=== PATIENT | female | born 1950 | race Caucasian/White ===

== ENCOUNTER 2018-03-08 09:42 | Inpatient (IN) ==
--- NOTE | 2018-03-07 21:28 | Discharge Summary ---
<Elizabeth Sena - Last Filed: 03/07/18 21:23> Orders not resulted at time of discharge: Pending orders 03/08/18 00:01 XR knee RT limited 1-2V [XR] Routine H/H [Hemoglobin and Hematocrit] [HEME] Routine Date of Encounter: 03/07/18 - Discharge Diagnosis (1) Status post total knee replacement, right Priority: Primary Status: Acute (2) Arthritis of knee, right Priority: Primary Status: Acute (3) History of WI (myocardial infarction) Priority: Secondary Status: Chronic (4) History of CHF (congestive heart failure) Priority: Secondary Status: Chronic (5) NICM (nonischemic cardiomyopathy) Priority: Secondary Status: Chronic (6) DMII (diabetes mellitus, type 2) Priority: Secondary Status: Chronic Qualifiers: Diabetes mellitus predatory animal exterminator insulin use: unspecified predatory animal exterminator insulin use status Diabetes mellitus complication status: with unspecified complications Qualified Code(s): E11.8 - Type 2 diabetes mellitus with unspecified complications (7) Hyperlipidemia Priority: Secondary Status: Chronic Qualifiers: Hyperlipidemia type: mixed hyperlipidemia Qualified Code(s): E78.2 - Mixed hyperlipidemia (8) Hypertension Priority: Secondary Status: Chronic Qualifiers: Hypertension type: essential hypertension Qualified Code(s): I10 - Essential (primary) hypertension - Hospital Course Hospital course: Ms. Birmingham is a 67 year old female - Time Spent with Patient Total time spent providing and/or coordinating discharge services: - Discharge Medications Home Medications: SUMAtriptan Succinate [Imitrex] 100 mg PO DAILY PRN 08/01/15 [History] Atorvastatin [Lipitor] 20 mg PO HS 03/24/16 [History] Ferrous Sulfate 65 mg PO QAM 03/24/16 [History] Levothyroxine [Synthroid] 25 mcg PO 0630 03/24/16 [History] Nitroglycerin [Nitrostat] 0.4 mg SL Q5MIN PRN 03/24/16 [History] metFORMIN [Glucophage] 500 mg PO BIDWM 03/24/16 [History] Loratadine [Claritin] 10 mg PO QAM PRN #0 08/03/17 [Rx] Aspirin Enteric Coated [Aspirin EC] 325 mg PO BID #20 tablet. 03/07/18 [Rx] OxyCODONE Immed Rel [Roxicodone 5 MG] 5 mg PO Q6HR PRN 7 Days #28 tablet [Rx] Amitriptyline [Elavil] 25 mg PO DAILY 03/08/18 [History] Aspirin 325 mg PO DAILY 03/08/18 [History] Carvedilol [Coreg] 25 mg PO BID 03/08/18 [History] Donepezil [Aricept] 10 mg PO HS 03/08/18 [History] Ferrous Sulfate [Iron] 325 mg PO DAILY 03/08/18 [History] Gabapentin [Neurontin] 400 mg PO BID 03/08/18 [History] Lisinopril 2.5 mg PO BID 03/08/18 [History] Metoprolol XL (24 HR) Succ [Toprol Xl] 25 mg PO DAILY 03/08/18 [History] Nystatin 1 applic TP BID PRN 03/08/18 [History] [place]-3/Dha/Epa/Fish Oil [Fish Oil Conc 1,000 mg Softgel] 1,000 mg PO DAILY [History] Pantoprazole Sodium 40 mg PO DAILY 03/08/18 [History] Tamoxifen Citrate 20 mg PO DAILY 03/08/18 [History] Tizanidine HCl 4 mg PO Q8H PRN 03/08/18 [History] Tramadol HCl [Ultram] 50 - 100 mg PO Q6H PRN 03/08/18 [History] Venlafaxine [Effexor] 75 mg PO BID 03/08/18 [History] Vitamin E 100 unit PO DAILY 03/08/18 [History] Zolpidem Tartrate 5 mg PO HS PRN 03/08/18 [History] amLODIPine [Norvasc] 7.5 mg PO DAILY 03/08/18 [History] rOPINIRole [Requip] 0.5 mg PO HS 03/08/18 [History] Lidocaine Patch [Lidoderm 5% patch] 1 each TP DAILY adh..patch 03/12/18 [Rx] Allergies/Adverse Reactions: 3 Allergy/AdvReac Type Severity Reaction Status Date / Time acetaminophen [From Tylenol] Allergy See Verified 03/08/18 10:53 Comments latex Allergy See Verified 03/08/18 10:53 Comments Primary care physician: Lesly Hopkins - Patient Status Disposition: Transfer SNF Condition: Good - Discharge Instructions Follow Up With: Lelsy Hopkins MD [Primary Care Provider] - <Heriberto Alexis - Last Filed: 03/08/18 10:33> Orders not resulted at time of discharge: Pending orders 03/08/18 00:01 XR knee RT limited 1-2V [XR] Routine H/H [Hemoglobin and Hematocrit] [HEME] Routine 03/08/18 09:55 US anesthesia pain block [US] Routine Date of Encounter: 03/08/18 - Discharge Diagnosis (1) Arthritis of knee, right Priority: Primary Status: Chronic (2) Status post total knee replacement, right Priority: Primary Status: Acute (3) DMII (diabetes mellitus, type 2) Priority: Secondary Status: Chronic Qualifiers: Diabetes mellitus predatory animal exterminator insulin use: unspecified usp insulin use status Diabetes mellitus complication status: with unspecified complications Qualified Code(s): E11.8 - Type 2 diabetes mellitus with unspecified complications (4) History of CHF (congestive heart failure) Priority: Secondary Status: Chronic (5) History of WI (myocardial infarction) Priority: Secondary Status: Chronic (6) Hyperlipidemia Priority: Secondary Status: Chronic Qualifiers: Hyperlipidemia type: mixed hyperlipidemia Qualified Code(s): E78.2 - Mixed hyperlipidemia (7) Hypertension Priority: Secondary Status: Chronic Qualifiers: Hypertension type: essential hypertension Qualified Code(s): I10 - Essential (primary) hypertension (8) NICM (nonischemic cardiomyopathy) Priority: Secondary Status: Chronic (9) Neuropathy Priority: Secondary Status: Chronic (12) Azotemia Priority: Secondary Status: Resolved (13) Leukocytosis Priority: Secondary Status: Resolved Qualifiers: Leukocytosis type: unspecified Qualified Code(s): D72.829 - Elevated white blood cell count, unspecified - Hospital Course Hospital course: Ms. Birmingham is a 67 year old female - Time Spent with Patient Total time spent providing and/or coordinating discharge services: Primary care physician: Lesly Hopkins <Sammie Hernandez - Last Filed: 03/12/18 13:28> Orders not resulted at time of discharge: Pending orders 03/08/18 09:55 US anesthesia pain block [US] Routine Date of Encounter: 03/12/18 Time of Encounter: 12:10 - Discharge Diagnosis (1) Acute blood loss anemia Status: Acute (2) Congestive heart failure (CHF) Status: Acute Qualifiers: Heart failure type: diastolic Heart failure chronicity: chronic Qualified Code(s): I50.32 - Chronic diastolic (congestive) heart failure (3) Status post total knee replacement, right Status: Acute (4) Arthritis of knee, right Status: Chronic (5) DMII (diabetes mellitus, type 2) Status: Chronic Qualifiers: Diabetes mellitus usp insulin use: unspecified usp insulin use status Diabetes mellitus complication status: with unspecified complications Qualified Code(s): E11.8 - Type 2 diabetes mellitus with unspecified complications (6) History of CHF (congestive heart failure) Status: Chronic (7) History of WI (myocardial infarction) Status: Chronic (8) Hyperlipidemia Status: Chronic Qualifiers: Hyperlipidemia type: mixed hyperlipidemia Qualified Code(s): E78.2 - Mixed hyperlipidemia (9) Hypertension Status: Chronic Qualifiers: Hypertension type: essential hypertension Qualified Code(s): I10 - Essential (primary) hypertension (10) NICM (nonischemic cardiomyopathy) Status: Chronic (11) Neuropathy Status: Chronic - Hospital Course Hospital course: Ms. Birmingham is a 67 year old female s/p Right Total knee replacement with history of CHF, HTN, DMT2, neuropathy, h/o WI. She did have acute blood loss anemia and received 2 units RBC transfusion. She had significant pain after surgery including calf pain. Doppler was performed to check for DVT but this was negative. She participated in some therapy. Stable for discharge. Patient seen at bedside, without complaints. A&O x 3 Afebrile, vital signs stable. Labs reviewed. H/H - 9.8/29.5 - received 2 units RBC transfusion yesterday Pain control: adequate. improved with lidoderm patch, will add for continuation at EC as needed. Doppler performed shows no evidence of DVT although it was an incomplete exam secondary to patient's low pain tolerance. I discussed with her again the importance of participating in therapy and walking further and she expressed understanding. All questions and concerns addressed. Educated on use of incentive spirometer. Encouraged ambulation and proper hydration. Patient educated on post-operative restrictions and post-operative care. Assessment and plan: Continue with postoperative care as above Discharge plan: [facility] today - Time Spent with Patient Total time spent providing and/or coordinating discharge services: Date of admission: 03/09/18 12:23 Primary care physician: Lesly Hopkins Consults: 03/08/18 14:05 Consult to Occupational Therapy [CONS] Routine Comment: Evaluate, develop and implement POC Reason for Consult: post knee surgery Does patient have active BEDREST order?: No Is patient medically & hemodynamically stable?: Yes Consult to Orthopedic Navigator [CONS] [CONS] Routine Consult to Physical Therapy [CONS] Routine Comment: Evaluate, develop and impliment POC Reason for Consult: post knee surgery Does patient have active BEDREST order?: No Is patient medically & hemodynamically stable?: Yes Consult to Charge Attendant [CONS] Routine Reason for SW Consult: post op joint replacement RT Post Op Consult [CONS] Routine Discharging clinician: Heriberto Alexis Anticipated date of discharge: 03/12/18 Labs on day of discharge: Labs from last 24 hours 03/12/18 03/11/18 03/11/18 05:15 19:03 16:48 Hgb 9.8 L D Hct 29.5 L POC Glucose 100 H 85 Blood Type Antibody Screen Crossmatch 03/11/18 03/11/18 03/11/18 11:52 08:00 07:35 Hgb Hct POC Glucose 116 H 98 Blood Type O NEGATIVE Antibody Screen NEGATIVE Crossmatch See Detail - Impressions ITS Impressions Knee X-Ray 03/08/18 00:01 IMPRESSION: Total knee arthropasty without acute hardware complication. D/ / Tyler Arroyo MD / Tyler Arroyo MD Interpreting Provider: Tyler Arroyo MD - Patient Status Overall status at discharge: patient is back to baseline - Diet and Activity Activity: as per physical therapy Diet: advance to your usual diet
[2018-03-08] MEDS ORDERED: Famotidine 20 MG/2 ML VIAL IVP ONE (09:54)
[2018-03-08] MEDS ORDERED: Acetaminophen IV 1,000 MG/100 ML INFUS..BTL IVPB ONE (09:55)
[2018-03-08] MEDS ORDERED: Celecoxib 100 MG CAPSULE PO ONE (09:55)
[2018-03-08] MEDS ORDERED: Ringers Solution, Lactated 1,000 ML IVC SCH (10:00)
[2018-03-08] MEDS ORDERED: *HR* Propofol 200 MG/20 ML VIAL IVP ONE (10:26)
[2018-03-08] MEDS ORDERED: *HR* FentaNYL (PF) 100 MCG/2 ML VIAL ONE (10:26)
[2018-03-08] MEDS ORDERED: *HR* Midazolam HCl 2 MG/2 ML VIAL ONE (10:26)
[2018-03-08] MEDS ORDERED: CeFAZolin Syr 2,000MG/20 ML 2,000 MG/20 ML SYRINGE IVPB ONE (10:29)
[2018-03-08] MEDS ORDERED: Albuterol 2.5 MG/3 ML NEBULIZER IH ONE (10:29)
[2018-03-08] MEDS ORDERED: Albuterol 2.5 MG/3 ML NEBULIZER ONE (10:32)
--- NOTE | 2018-03-08 10:33 | History & Physical Report ---
Date of Encounter: 03/08/18 Time of Encounter: 10:32 24 Hour HP Update - Instructions Instructions: If the History and Physical is less than 30 days old and was completed prior to A.M. admission and or procedure and has NOT been updated on calendar day of procedure please complete this update prior to performing procedure. - Update Patient reports changes in Medical Condition: No Changes in examination, assessment, or condition: No Changes in Medication: No Preop tests/diagnostics Reviewed: Yes Surgery Remains Indicated: Yes Consent for Planned Operative Procedure(s) Verified: Yes - Pre-Operative Checklist Preoperative Checklist Indicated: No Prophylactic Antibiotic Ordered: Yes Is VTE Prophylaxis Indicated?: Yes
[2018-03-08] MEDS ORDERED: *HR* PHENYLEPHRINE 1,000 MCG/10 ML SYRINGE IVP ONE (10:43)
--- NOTE | 2018-03-08 10:47 | Anesthesia Evaluation PreOp ---
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 History: CVA (2014) Other Medical History: Diabetes Type II, Thyroid, Other (LUIS) Anesthesia History: No Prior Anesthetic Complications : No Alcohol Use: none Drug use: none Medications and Allergies Gabapentin [Neurontin] 300 mg PO TID 02/20/15 [History] Tamoxifen [Nolvadex] 20 mg PO DAILY 02/20/15 [History] Venlafaxine [Effexor] 225 mg PO DAILY 02/20/15 [History] Zolpidem [Ambien] 10 mg PO HS 02/20/15 [History] Tizanidine [Zanaflex] 4 mg PO TID 06/03/15 [History] SUMAtriptan Succinate [Imitrex] 100 mg PO DAILY PRN 08/01/15 [History] Atorvastatin [Lipitor] 20 mg PO HS 03/24/16 [History] DiphenhydraMINE [Benadryl] 25 mg PO Q4HR 03/24/16 [History] Ferrous Sulfate 65 mg PO QAM 03/24/16 [History] Levothyroxine [Synthroid] 25 mcg PO 0630 03/24/16 [History] Lisinopril [Zestril] 10 mg PO DAILY 03/24/16 [History] Nitroglycerin [Nitrostat] 0.4 mg SL PRN PRN 03/24/16 [History] Prochlorperazine Maleate [Compazine] 10 mg PO Q6HR 03/24/16 [History] metFORMIN [Glucophage] 500 mg PO BIDWM 03/24/16 [History] Isosorbide MONOnitrate (24 HR) [Imdur] 60 mg PO DAILY #30 tab.er.24h 10/19/16 [ Rx] Docusate [Colace] 200 mg PO BID 02/09/17 [History] Coreg 1 tab PO BID 07/31/17 [History] Loratadine [Claritin] 10 mg PO QAM PRN #0 08/03/17 [Rx] Magnesium Oxide [Mag-Ox] 400 mg PO DAILY #7 tablet 08/03/17 [Rx] Aspirin Enteric Coated [Aspirin EC] 325 mg PO BID #20 tablet. 03/07/18 [Rx] OxyCODONE Immed Rel [Roxicodone 5 MG] 5 mg PO Q6HR PRN 7 Days #28 tablet [Rx] 3 Allergy/AdvReac Type Severity Reaction Status Date / Time acetaminophen [From Tylenol] Allergy See Verified 01/27/18 11:42 Comments latex Allergy See Verified 01/27/18 11:42 Comments - Meds/Allergy Pre-op Review Medications Reviewed: Yes Allergies Reviewed: Yes Beta Blockers on Current Med List: Yes (Coreg today 3014) Anesthesia Results - Labs Laboratory Tests 03/04/18 03/04/18 03/04/18 14:42 14:42 14:42 Hgb 11.5 Hct 35.1 L Plt Count 222 PT 12.1 INR 1.1 APTT 30.7 Sodium 141 Potassium 3.8 BUN 16 Creatinine 0.99 - Imaging EKG: report reviewed (Ectopic Atrial Rhythm) Additional studies: ECHO 2017 EF 60%, no pulm htn Anesthesia Exam O2 Sat Height 1.57 m Height 1.57 m Height 1.57 m Weight 71.214 kg Weight 71.214 kg Weight 71.214 kg O2 Sat by Pulse Oximetry 96 O2 Sat by Pulse Oximetry 96 Vital Signs Temp Pulse Resp BP Pulse Ox 99.0 F 65 18 138/71 96 03/08/18 10:05 03/08/18 10:05 03/08/18 10:05 03/08/18 10:05 03/08/18 10:05 Height: 5'2 Weight: 157 lbs NPO (# of Hours): MN Pain Scale: 0 - HEENT Pupil (Motor): Pupils equal, EOMI Mallampati: III Teeth: Normal Oral Opening: Less than or equal to 3 - 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
--- NOTE | 2018-03-08 10:48 | Anesthesia Procedures ---
Date of Encounter: 03/08/18 Time of Encounter: 10:45 Procedures: Anesthesia - Epidural/Spinal Patient ID/Chart reviewed: Yes Patient examined: Yes Consent Obtained: Yes Supplemental Oxygen: Nasal Cannula Site Prep: Aseptic Technique, 0.5% Chlorhexidine/Alcohol Patient position: upright Local Anesthetic: Lidocaine 1% Amount of Local Anesthetic used: 5 Interspace Used: L3-L4 Blood: No CSF: Yes Paresthesia: No Procedure: L3-4 x 1 attempt after failed previous attempt by another provider, clear CSF, no parasthesias, no heme. 2cc 0.5% bupivicaine plain with 0.2mg duramorph injected after positive swirl. Tolerated without complaint.
--- NOTE | 2018-03-08 10:59 | Anesthesia Procedures ---
Date of Encounter: 03/08/18 Time of Encounter: 10:57 Procedures: Anesthesia - Nerve Block Procedure Date: 03/08/18 Time: 10:57 Allergies/Adv Reactions: acetaminophen [From Tylenol] Allergy (Verified 03/08/18 10:53) See Comments latex Allergy (Verified 03/08/18 10:53) See Comments Pre-op Diagnosis: right knee oa Surgical Procedure: right total knee Checklist: Correct Patient Identifier, Correct procedure, History checked Correct side: Right Blood Thinner: No Sedation: Versed (mg): 4 Sedation: Fentanyl (mcg): 100 Indication: Post Op Analgesia Pre-op Neuro Deficits: No Block Type: Other (Adductor canal)
[2018-03-08] MEDS ORDERED: ROPIVACAINE HCL/PF 0.5% 30 ML VIAL ONE (11:08)
[2018-03-08] MEDS ORDERED: *HR* Morphine Sulfate/PF 10 MG/10 ML AMPUL ONE (11:12)
[2018-03-08] MEDS ORDERED: Ethanol\\Acetic Acid\\Na Ace\\Ben 1,000 ML IRRIG.SOLN IR ONE (11:14)
[2018-03-08] MEDS ORDERED: Tetracaine/PF 20 MG/2 ML AMPUL ONE (11:39)
[2018-03-08] MEDS ORDERED: Propofol 500 MG/50 ML INFUS..BTL ONE (11:43)
--- NOTE | 2018-03-08 11:49 | Anesthesia Procedures ---
Date of Encounter: 03/08/18 Time of Encounter: 11:35 Procedures: Anesthesia - Epidural/Spinal Patient ID/Chart reviewed: Yes Patient examined: Yes Supplemental Oxygen Rate (L/min): 2 Sedation: Versed (mg): 2 Sedation: Fentanyl (mcg): 100 Site Prep: Aseptic Technique, Sterile prep and drape, 0.5% Chlorhexidine/Alcohol Patient position: upright Local Anesthetic: Lidocaine 1% Amount of Local Anesthetic used: 2 Interspace Used: L2-L3 Blood: No CSF: Yes Paresthesia: No Spinal Needle Gauge: 22 Spinal Dose: 2ml 0.5% bupivacaine, 200mcg duramorph Procedure: Vital Signs/O2 Sat/Glucose, Most Recent Temp Pulse Resp BP Pulse Ox 99.0 F 67 16 128/60 93 03/08/18 10:05 03/08/18 11:39 03/08/18 11:39 03/08/18 11:39 03/08/18 11:39 Blood Glucose* 102 - Nerve Block Procedure Date: 03/08/18 Time: 11:40 Pre-op Diagnosis: right knee oa Surgical Procedure: right tka Checklist: Correct Patient Identifier, Correct procedure, History checked Correct side: Right Blood Thinner: No Monitor Applied: EKG, BP, Pulse Oximetry Supplemental Oxygen via Nasal Cannula (L/min): 2 Indication: Post Op Analgesia Pre-op Neuro Deficits: No Block Type: Other (adductor canal) Sterile Technique: Yes Ultrasound used: Yes Anatomy identified: Yes Visual spread of Local: Yes Neuro Stimulation: No Blood on Needle Aspiration: No Smooth Injection of Local: Yes Pain with Injection of Local: No Prep: Chlorhexadine Needle: 21 x 100 mm Stimuplex Local: Tetracaine (20mg), Ropivacaine Volume (cc): 30 Number of Attempts: 1 Complications: None/effective block Vitals: Vital Signs/O2 Sat/Glucose, Most Recent Temp Pulse Resp BP Pulse Ox 99.0 F 67 16 128/60 93 03/08/18 10:05 03/08/18 11:39 03/08/18 11:39 03/08/18 11:39 03/08/18 11:39 Blood Glucose* 102
[2018-03-08] MEDS ORDERED: *HR* Promethazine 25 MG/ML VIAL IVP PRN (12:31)
[2018-03-08] MEDS ORDERED: *HR* HYDROmorphone (PF) 1 MG/ML SYRINGE IVP PRN (12:31)
[2018-03-08] MEDS ORDERED: *HR* Labetalol 20 MG/4 ML SYRINGE IVP PRN (12:31)
[2018-03-08] MEDS ORDERED: *HR* OxyCODONE Immed Rel 5 MG TABLET PO PRN (12:31)
--- NOTE | 2018-03-08 12:36 | Orthopedic Operative Note ---
Date of procedure: 03/08/18 Pre-op diagnosis: Right knee arthritis Post-op diagnosis: same Procedure: Procedure: Right Total knee replacement Estimated blood loss: 100 cc Hardware: Metal and polyethylene replacement. Arthrex Femur: 3 Tibia:3 PS insert: 14 Patella:34 Exam Under anesthesia: Full flexion and extension, no instability Procedural Notes: Grade 4 arthritic changes all 3 compartments. Operative procedure: The patient was brought to the operating room and placed on the operating room table. After general anesthesia was administered the operative knee was examined. Findings were noted in the exam under anesthesia. The operative extremity was prepped and draped in sterile surgical fashion. The patient received IV antibiotics prior to skin incision. A standard midline incision was made centered over the patella. The incision was made through the skin and subcutaneous tissue. A medial parapatellar tendon approach was performed. Care was taken to preserve tissue along the medial aspect of the patella. And to protect the patella tendon. The deep MCL was released off the medial tibia. The infra patella fat pad was excised. Knee was brought into flexion. Patient noted to have grade 4 arthritic changes all 3 compartments. The entry hole was made for the intramedullary femoral guide. The guide was seated in 6 degrees of valgus. Anterior cut was made followed by the distal cut. The ACL the PCL the medial and the lateral menisci were excised. The tibia was subluxed forward. The entry hole was made for the intramedullary tibial guide. Guide was seated to resect 2 mm off the more abnormal side. The knee was brought into flexion the distal femur was sized to a 3. The femoral guide was seated, the anterior cut was made followed by the posterior condylar cut, followed by the chamfer cuts. The finishing guide was seated the box cut was made and the lug holes were drilled. The tibia was sized to a 3, the tibial tray was seated and prepared with the large drill followed by the fin cutter. Trial reduction revealed full extension no varus valgus instability with the appropriate 14 PS Anne. The patella was everted and cut was made at the level of the insertion of the quadriceps and patella tendon. The patella was sized to a 34 the guide was seated and the lug holes are drilled. Trial reduction revealed excellent patella tracking. All trial components were removed all bony surfaces were irrigated. The tibia was cemented first followed by the femur. The 14 PS Anne was seated and the knee was brought into full extension. The patella was cemented and held in place with the patellar holding clamp. After the cement had hardened, the knee sat for 2 minutes with a antibacterial solution. The knee was then irrigated out with 2 L of pulse irrigation. The PA close the knee. The extensor mechanism was closed with #2 FiberWire suture and #2 PDS suture. The subcutaneous tissue was then irrigated and closed deep with #1 PDS suture superficially with 0 PDS suture and skin was closed with skin danica. The patient was then placed in a sterile dressing and a postoperative brace extubated and transferred to recovery room in stable condition. Anesthesia: spinal Surgeon: Heriberto Alexis Was there an bankruptcy assistant present: No Estimated blood loss (cc): 100 Condition: stable Disposition: PACU
[2018-03-08 13:36] LABS: Hematocrit 34.1 % (35.3-44.9); Hemoglobin 11.2 g/dL (11.5-15.4)
--- NOTE | 2018-03-08 13:44 | Anesthesia Evaluation Post Op ---
Date of Encounter: 03/08/18 Time of Encounter: 13:42 - Vital Signs Vital Signs: Last Vital Signs Temp 97.6 F 03/08/18 13:30 Pulse 55 03/08/18 13:30 Resp 16 03/08/18 13:30 BP 127/71 03/08/18 13:30 Pulse Ox 93 03/08/18 13:30 - Lungs Lungs: Clear Ascult./Percussion - Airway Airway: Non-obstructed - Cardiovascular Regular Rate - Mental Status Mental Status: Alert & Oriented, Answers Appropriately - Pain Pain Scale: 0 Pain Scale used: Numeric (1 - 10) - Nausea Vomiting Nausea Vomiting: Not Present - Hydration Hydration: Ice chips, Chun catheter - Discharge PostOp Status: Transfer Patient to floor
[2018-03-08] MEDS ORDERED: Nitroglycerin 0.4 MG TAB.SUBL SL PRN (14:05)
[2018-03-08] MEDS ORDERED: Loratadine 10 MG TABLET PO PRN (14:05)
[2018-03-08] MEDS ORDERED: Nystatin POWDER 30 GM BOTTLE TP PRN (14:05)
[2018-03-08] MEDS ORDERED: *HR* OxyCODONE/APAP 5/325 TABLET PO PRN (14:05)
[2018-03-08] MEDS ORDERED: *HR* Dextrose 50 % in Water (Syg) 50 ML SYRINGE IVP PRN (14:05)
[2018-03-08] MEDS ORDERED: Temazepam 15 MG CAPSULE PO PRN (14:05)
[2018-03-08] MEDS ORDERED: Naloxone 0.4 MG/ML INJ IVP PRN (14:05)
[2018-03-08] MEDS ORDERED: SUMAtriptan succinate 50 MG TABLET PO PRN (14:05)
[2018-03-08] MEDS ORDERED: Sennosides 8.6 MG TABLET PO PRN (14:05)
[2018-03-08] MEDS ORDERED: Dextrose Gel 15 GM/37.5 ML TUBE PO PRN ×2 (14:05)
[2018-03-08] MEDS ORDERED: MOM Conc 10 ML UD.LIQ PO PRN (14:05)
[2018-03-08] MEDS ORDERED: D5% in Water 1,000 ML IVC PRN (14:05)
[2018-03-08] MEDS ORDERED: Ondansetron 4 MG/2 ML VIAL IVP PRN (14:05)
[2018-03-08] MEDS ORDERED: tiZANidine 4 MG TABLET PO PRN (14:05)
--- NOTE | 2018-03-08 15:33 | Physician Discharge Referral ---
<Elizabeth Sena L - Last Filed: 03/08/18 15:32> [facility] Referral Info Transfer To: F Provider in Charge: Provider in Charge after Transfer: PCP Institutional Level of Care: Skilled - Diagnosis (1) Status post total knee replacement, right Priority: Primary Status: Acute (2) Arthritis of knee, right Priority: Primary Status: Chronic (3) History of [place] (myocardial infarction) Priority: Secondary Status: Chronic (4) History of CHF (congestive heart failure) Priority: Secondary Status: Chronic (5) NICM (nonischemic cardiomyopathy) Priority: Secondary Status: Chronic (6) DMII (diabetes mellitus, type 2) Priority: Secondary Status: Chronic (7) Hyperlipidemia Priority: Secondary Status: Chronic (8) Hypertension Priority: Secondary Status: Chronic Expected Duration of Placement: < 30 days Prognosis: Good Aware of Diagnosis: Patient Aware of Prognosis: Patient - Transfer Medications Home Medications: SUMAtriptan Succinate [Imitrex] 100 mg PO DAILY PRN 08/01/15 [History] Atorvastatin [Lipitor] 20 mg PO HS 03/24/16 [History] Ferrous Sulfate 65 mg PO QAM 03/24/16 [History] Levothyroxine [Synthroid] 25 mcg PO 0630 03/24/16 [History] Nitroglycerin [Nitrostat] 0.4 mg SL Q5MIN PRN 03/24/16 [History] metFORMIN [Glucophage] 500 mg PO BIDWM 03/24/16 [History] Loratadine [Claritin] 10 mg PO QAM PRN #0 08/03/17 [Rx] Aspirin Enteric Coated [Aspirin EC] 325 mg PO BID #20 tablet. 03/07/18 [Rx] OxyCODONE Immed Rel [Roxicodone 5 MG] 5 mg PO Q6HR PRN 7 Days #28 tablet [Rx] Amitriptyline [Elavil] 25 mg PO DAILY 03/08/18 [History] Aspirin 325 mg PO DAILY 03/08/18 [History] Carvedilol [Coreg] 25 mg PO BID 03/08/18 [History] Donepezil [Aricept] 10 mg PO HS 03/08/18 [History] Ferrous Sulfate [Iron] 325 mg PO DAILY 03/08/18 [History] Gabapentin [Neurontin] 400 mg PO BID 03/08/18 [History] Lisinopril [Lisinopril] 2.5 mg PO BID 03/08/18 [History] Metoprolol XL (24 HR) Succ [Toprol Xl] 25 mg PO DAILY 03/08/18 [History] Nystatin [Nystatin] 1 applic TP BID PRN 03/08/18 [History] [place]-3/Dha/Epa/Fish Oil [Fish Oil Conc 1,000 mg Softgel] 1,000 mg PO DAILY [History] Pantoprazole Sodium 40 mg PO DAILY 03/08/18 [History] Tamoxifen Citrate [Tamoxifen Citrate] 20 mg PO DAILY 03/08/18 [History] Tizanidine HCl [Tizanidine HCl] 4 mg PO Q8H PRN 03/08/18 [History] Tramadol HCl [Ultram] 50 - 100 mg PO Q6H PRN 03/08/18 [History] Venlafaxine [Effexor] 75 mg PO BID 03/08/18 [History] Vitamin E 100 unit PO DAILY 03/08/18 [History] Zolpidem Tartrate [Zolpidem Tartrate] 5 mg PO HS PRN 03/08/18 [History] amLODIPine [Norvasc] 7.5 mg PO DAILY 03/08/18 [History] rOPINIRole [Requip] 0.5 mg PO HS 03/08/18 [History] Allergies/Adverse Reactions: 3 Allergy/AdvReac Type Severity Reaction Status Date / Time acetaminophen [From Tylenol] Allergy See Verified 03/08/18 10:53 Comments latex Allergy See Verified 03/08/18 10:53 Comments - Respiratory Orders None Smoking Cessation: Smoking cessation has been advised. For more information, call the [place] Tobacco Quit Line at 7-739-SZYT-NOW. - Mobility Orders Chair, Ambulate - Rehabiliation Orders Rehab Potential: Good Rehab Orders: ROM Exercises, Evaluation for Physical Therapy, Evaluation for Occupational Therapy Other: Opsite dressing, leave intact until first post-operative visit. If dressing becomes >50% saturated, contact office, remove dressing and place appropriate dressing in its place. Do not allow for dressing to get wet. Zipline in place, plan to remove at post-operative day #14-16. Total Joint Precautions x 6 weeks Apply cold therapy wrap 3-6x/day for 20 minutes at a time. Encourage ambulation throughout the day Use Incentive spirometer 10x/hour. Elevate affected extremity above heart as tolerated. Brace: Wear knee immobilizer at night until first post-operative appt. - Treatments Skin tear care topically daily PRN per policy, Fleet enema rectally every other day PRN cleansing purposes - Diet Orders Regular CERTIFICATION: I certify that the transfer of the above named patient to an Extended Care Facility is necessary for the continuing treatment of the diagnosis listed. The above information is true and accurate reflection of patient's current condition. Confidential - Redisclosure prohibited without a patient's written consent. <Heriberto Alexis - Last Filed: 03/11/18 08:34> - Diagnosis (1) Arthritis of knee, right Status: Chronic (2) Status post total knee replacement, right Status: Acute (3) DMII (diabetes mellitus, type 2) Status: Chronic (4) History of CHF (congestive heart failure) Status: Chronic (5) History of [place] (myocardial infarction) Status: Chronic (6) Hyperlipidemia Status: Chronic (7) Hypertension Status: Chronic (8) NICM (nonischemic cardiomyopathy) Status: Chronic (9) Neuropathy Status: Chronic (10) Acute blood loss anemia Status: Acute (11) Congestive heart failure (CHF) Status: Acute - Respiratory Orders Smoking Cessation: Smoking cessation has been advised. For more information, call the [place] Tobacco Quit Line at 9-300-IDVX-NOW. CERTIFICATION: I certify that the transfer of the above named patient to an Extended Care Facility is necessary for the continuing treatment of the diagnosis listed. The above information is true and accurate reflection of patient's current condition. Confidential - Redisclosure prohibited without a patient's written consent.
[2018-03-08] MEDS: Insulin LISPRO 300 UNITS/3 ML VIAL SQ SCH ×3 (16:22→21:25)
[2018-03-08] MEDS: Ringers Solution, Lactated 1,000 ML IVC SCH (16:22)
[2018-03-08] MEDS: *HR* OxyCODONE Immed Rel 5 MG TABLET PO PRN ×2 (16:33→21:24)
[2018-03-08] MEDS: *HR* Enoxaparin 30 MG/0.3 ML SYRINGE SQ SCH (18:10)
[2018-03-08] MEDS: *HR* Metformin 500 MG TABLET PO SCH (18:10)
[2018-03-08] MEDS: Gabapentin 400 MG CAPSULE PO SCH (21:24)
[2018-03-08] MEDS: rOPINIRole 0.25 MG TABLET PO SCH (21:24)
[2018-03-09] MEDS: *HR* OxyCODONE Immed Rel 5 MG TABLET PO PRN ×4 (01:22→17:05)
[2018-03-09 02:40] LABS: Hematocrit 27.7 % (35.3-44.9)
[2018-03-09 02:41] LABS: Hemoglobin 9.1 g/dL (11.5-15.4)
[2018-03-09 02:58] LABS: BUN/Creatinine Ratio 15 (6-26); Blood Urea Nitrogen 14 mg/dL (8-23); Calcium 7.4 mg/dL (8.6-10.3); Carbon Dioxide 23 mEq/L (23-29); Chloride 105 mEq/L (98-107); Glucose 128 mg/dL (70-105); Osmolality,Calculated 280 (280-300); Potassium 4.3 mEq/L (3.5-5.1); Sodium 134 mEq/L (136-145); eGFR For Non-African Americans > 60 (> 60)
[2018-03-09] MEDS: *HR* Enoxaparin 30 MG/0.3 ML SYRINGE SQ SCH ×2 (05:16→17:05)
[2018-03-09] MEDS: Levothyroxine 25 MCG TABLET PO SCH (05:17)
--- NOTE | 2018-03-09 06:56 | Orthopedics Progress Note ---
Date of Encounter: 03/09/18 Time of Encounter: 06:54 - Assessment and Plan (1) Arthritis of knee, right Current Visit: No Status: Chronic (2) Status post total knee replacement, right Current Visit: No Status: Acute (3) DMII (diabetes mellitus, type 2) Current Visit: No Status: Chronic Qualifiers: Diabetes mellitus manager long term care insulin use: unspecified manager long term care insulin use status Diabetes mellitus complication status: with unspecified complications Qualified Code(s): E11.8 - Type 2 diabetes mellitus with unspecified complications (4) History of CHF (congestive heart failure) Current Visit: No Status: Chronic (5) History of [place] (myocardial infarction) Current Visit: No Status: Chronic (6) Hyperlipidemia Current Visit: No Status: Chronic Qualifiers: Hyperlipidemia type: mixed hyperlipidemia Qualified Code(s): E78.2 - Mixed hyperlipidemia (7) Hypertension Current Visit: No Status: Chronic Qualifiers: Hypertension type: essential hypertension Qualified Code(s): I10 - Essential (primary) hypertension (8) NICM (nonischemic cardiomyopathy) Current Visit: No Status: Chronic (9) Neuropathy Current Visit: No Status: Chronic (10) Acute blood loss anemia Current Visit: Yes Status: Acute Subjective Interval history: Patient was seen this morning doing well without complaints. Afebrile vital signs stable. Operative extremity: Neurovascularly intact Dressing clean dry and intact Calves nontender Assessment and plan: Continue with postoperative care Hemoglobin 9.1 patient is unsafe to go home patient has active diabetes, active congestive heart failure will require significant observation postoperatively will be converted to an inpatient. Objective Vital signs: Vital Signs Temp Pulse Resp BP Pulse Ox 03/09/18 04:36 98.8 F 03/09/18 03:36 99.9 F H 67 18 107/69 95 03/08/18 23:25 99.0 F 73 18 118/74 96 03/08/18 19:18 98.2 F 61 16 143/84 03/08/18 17:45 98.6 F 60 16 137/79 90 03/08/18 16:45 98 F 60 18 109/68 90 03/08/18 15:45 97.5 F L 89 15 118/69 92 03/08/18 15:15 97.7 F 60 16 114/65 90 03/08/18 14:45 97.7 F 60 16 122/56 92 03/08/18 14:30 98.3 F 54 16 113/73 93 03/08/18 14:15 97.8 F 55 16 120/77 92 03/08/18 13:50 97.9 F 54 16 132/67 93 03/08/18 13:40 97.9 F 53 16 122/71 92 03/08/18 13:30 97.6 F 55 16 127/71 93 03/08/18 13:20 54 16 118/65 96 03/08/18 13:10 53 16 123/61 93 03/08/18 13:00 97.2 F L 60 16 98/61 97 03/08/18 11:39 67 16 128/60 93 03/08/18 11:06 65 16 151/80 99 03/08/18 10:52 18 138/71 96 03/08/18 10:05 99.0 F 65 18 138/71 96 Intake and Output 03/08/18 03/08/18 03/09/18 15:59 23:59 07:59 Intake Total 300 / 300 Output Total 100 / 100 Balance -100 / -100 300 / 300 Intake: IV Fluids 100 / 100 Ancef 2,000 MG In 0.9 % Sodium 100 / 100 Chloride 100 ML @ 200 mls/hr IVPB Q8HR [facility] Rx#:[id number] Oral 200 / 200 Output: Estimated Blood Loss 100 / 100 Other: Meal Dinner Percent of Meal Consumed 70% # Voids 1 1 Weight 71.214 kg Blood Glucose* 75 130 - Labs CBC & BMP: 03/09/18 01:43 03/09/18 01:43 Labs: Abnormal lab results Hgb 9.1 g/dL (11.5-15.4) L D 03/09/18 01:43 Hct 27.7 % (35.3-44.9) L 03/09/18 01:43 Sodium 134 mEq/L (136-145) L 03/09/18 01:43 Glucose 128 mg/dL (70-105) H 03/09/18 01:43 POC Glucose 130 mg/dL (70-99) H 03/08/18 21:20 Calcium 7.4 mg/dL (8.6-10.3) L 03/09/18 01:43 - VTE Documentation of Mechanical Device: Venous foot pump, device Consult Discharge Plan - Plan Referrals: Lesly Hopkins MD [Primary Care Provider] - Prescriptions: Aspirin Enteric Coated [Aspirin EC] 325 mg PO BID #20 tablet. OxyCODONJw Immed Rel [Roxicodone 5 MG] 5 mg PO Q6HR PRN 7 Days #28 tablet PRN Reason: Severe Pain
[2018-03-09] MEDS: Insulin LISPRO 300 UNITS/3 ML VIAL SQ SCH ×4 (08:11→20:52)
[2018-03-09] MEDS: amLODIPine 5 MG TABLET PO SCH (08:16)
[2018-03-09] MEDS: Metoprolol XL (24 HR) Succ 25 MG TAB.ER.24H PO SCH (08:17)
[2018-03-09] MEDS: traMADol 50 MG TABLET PO PRN (08:17)
[2018-03-09] MEDS: Aspirin 325 MG TABLET PO SCH (08:17)
[2018-03-09] MEDS: Gabapentin 400 MG CAPSULE PO SCH ×2 (08:18→20:48)
[2018-03-09] MEDS: *HR* Metformin 500 MG TABLET PO SCH ×2 (08:18→17:05)
[2018-03-09] MEDS: Ringers Solution, Lactated 1,000 ML IVC SCH (08:21)
[2018-03-09] MEDS: EPA PO SCH (08:30)
[2018-03-09] MEDS: OMEGA PO SCH (08:30)
[2018-03-09] MEDS: FISH OIL PO SCH (08:30)
[2018-03-09] MEDS: DHA PO SCH (08:30)
--- NOTE | 2018-03-09 20:07 | Event Note ---
Date of Encounter: 03/09/18 Time of Encounter: 12:45 PCR - POD#1 s/p Right Total knee replacement 03/08/18 Patient seen at bedside, without complaints. A&O x 3 Afebrile, vital signs stable. Labs reviewed. H/H - 9.07/18.7 stable, asymptomatic Pain control: inadequate, she has allergy to tylenol. will add lidoderm patch for local pain relief. She does have calf tenderness to palpation stating shooting up to knee and thigh worse with motion. Will order doppler now for possible DVT. Participated in 1 session with OT this morning, she refused other 3 attempts for therapy today by PT/OT due to pain. I discussed with her the importance of participating in therapy and she expressed understanding. All questions and concerns addressed. Educated on use of incentive spirometer. Encouraged ambulation and proper hydration. Patient educated on post-operative restrictions and post-operative care. Assessment and plan: Continue with postoperative care as above Discharge plan: ERICA Brooks
[2018-03-09] MEDS: rOPINIRole 0.25 MG TABLET PO SCH (20:49)
[2018-03-10] MEDS: *HR* OxyCODONE Immed Rel 5 MG TABLET PO PRN ×5 (01:11→22:22)
[2018-03-10 01:43] LABS: Hematocrit 26.6 % (35.3-44.9); Hemoglobin 8.9 g/dL (11.5-15.4)
[2018-03-10 02:09] LABS: BUN/Creatinine Ratio 15 (6-26); Blood Urea Nitrogen 11 mg/dL (8-23); Calcium 8.1 mg/dL (8.6-10.3); Carbon Dioxide 24 mEq/L (23-29); Chloride 101 mEq/L (98-107); Glucose 125 mg/dL (70-105); Osmolality,Calculated 275 (280-300); Potassium 3.7 mEq/L (3.5-5.1); Sodium 132 mEq/L (136-145); eGFR For Non-African Americans > 60 (> 60)
[2018-03-10] MEDS: *HR* Enoxaparin 30 MG/0.3 ML SYRINGE SQ SCH ×2 (05:42→17:58)
[2018-03-10] MEDS: Levothyroxine 25 MCG TABLET PO SCH (05:42)
--- NOTE | 2018-03-10 08:11 | Orthopedics Progress Note ---
Date of Encounter: 03/10/18 Time of Encounter: 08:10 - Assessment and Plan (1) Arthritis of knee, right Current Visit: No Status: Chronic (2) Status post total knee replacement, right Current Visit: No Status: Acute (3) DMII (diabetes mellitus, type 2) Current Visit: No Status: Chronic Qualifiers: Diabetes mellitus manager long term care insulin use: unspecified manager long term care insulin use status Diabetes mellitus complication status: with unspecified complications Qualified Code(s): E11.8 - Type 2 diabetes mellitus with unspecified complications (4) History of CHF (congestive heart failure) Current Visit: No Status: Chronic (5) History of [place] (myocardial infarction) Current Visit: No Status: Chronic (6) Hyperlipidemia Current Visit: No Status: Chronic Qualifiers: Hyperlipidemia type: mixed hyperlipidemia Qualified Code(s): E78.2 - Mixed hyperlipidemia (7) Hypertension Current Visit: No Status: Chronic Qualifiers: Hypertension type: essential hypertension Qualified Code(s): I10 - Essential (primary) hypertension (8) NICM (nonischemic cardiomyopathy) Current Visit: No Status: Chronic (9) Neuropathy Current Visit: No Status: Chronic (10) Acute blood loss anemia Current Visit: Yes Status: Acute (11) Congestive heart failure (CHF) Current Visit: Yes Status: Acute Qualifiers: Heart failure type: diastolic Heart failure chronicity: chronic Qualified Code(s): I50.32 - Chronic diastolic (congestive) heart failure Subjective Interval history: Patient was seen this morning doing well without complaints. Afebrile vital signs stable. Operative extremity: Neurovascularly intact Dressing clean dry and intact Calves nontender Assessment and plan: Continue with postoperative care Hemoglobin 8.9 Objective Vital signs: Vital Signs Temp Pulse Resp BP Pulse Ox 03/10/18 06:44 98.8 F 87 16 118/76 93 03/10/18 04:02 99.1 F 81 16 112/72 90 03/10/18 00:46 99.1 F 79 17 142/77 94 03/09/18 20:42 99.9 F H 84 17 143/79 95 03/09/18 15:28 99.9 F H 77 17 169/77 93 03/09/18 11:21 99.5 F 73 17 151/76 94 Intake and Output 03/09/18 03/10/18 03/10/18 23:59 07:59 15:59 Intake Total 50 / 50 Output Total 350 / 350 Balance 50 / 50 -350 / -350 Intake: Oral 50 / 50 Output: Urine 350 / 350 Other: Weight 73.5 kg Blood Glucose* 133 114 Patient Weight 03/10/18 23:59 Weight 73.5 kg - Labs CBC & BMP: 03/10/18 00:44 03/10/18 00:44 Labs: Abnormal lab results Hgb 8.9 g/dL (11.5-15.4) L 03/10/18 00:44 Hct 26.6 % (35.3-44.9) L 03/10/18 00:44 Sodium 132 mEq/L (136-145) L 03/10/18 00:44 Glucose 125 mg/dL (70-105) H 03/10/18 00:44 POC Glucose 133 mg/dL (70-99) H 03/09/18 20:52 Calculated Osmolality 275 (280-300) L 03/10/18 00:44 Calcium 8.1 mg/dL (8.6-10.3) L 03/10/18 00:44 - VTE Documentation of Mechanical Device: Venous foot pump, device Consult Discharge Plan - Plan Referrals: Lesly Hopkins MD [Primary Care Provider] -
[2018-03-10] MEDS: Metoprolol XL (24 HR) Succ 25 MG TAB.ER.24H PO SCH (09:08)
[2018-03-10] MEDS: amLODIPine 5 MG TABLET PO SCH (09:09)
[2018-03-10] MEDS: Aspirin 325 MG TABLET PO SCH (09:10)
[2018-03-10] MEDS: EPA PO SCH (09:10)
[2018-03-10] MEDS: FISH OIL PO SCH (09:10)
[2018-03-10] MEDS: *HR* Metformin 500 MG TABLET PO SCH ×2 (09:10→16:43)
[2018-03-10] MEDS: Gabapentin 400 MG CAPSULE PO SCH ×2 (09:10→22:22)
[2018-03-10] MEDS: DHA PO SCH (09:10)
[2018-03-10] MEDS: OMEGA PO SCH (09:10)
[2018-03-10] MEDS: traMADol 50 MG TABLET PO PRN ×2 (09:14→17:58)
[2018-03-10] MEDS: Insulin LISPRO 300 UNITS/3 ML VIAL SQ SCH ×4 (09:20→22:23)
--- NOTE | 2018-03-10 17:45 | Event Note ---
Date of Encounter: 03/10/18 Time of Encounter: 12:45 PCR - POD#2 s/p Right Total knee replacement 03/08/18 Patient seen at bedside, without complaints. A&O x 3 Afebrile, vital signs stable. Labs reviewed. H/H - 8.9/26.6 stable, asymptomatic Pain control: improved with lidoderm patch Doppler performed shows no evidence of DVT although it was an incomplete exam secondary to patient's low pain tolerance. She admits to not walking with therapy [place] [facility] [place] further. I discussed with her again the importance of participating in therapy and walking further and she expressed understanding. All questions and concerns addressed. Educated on use of incentive spirometer. Encouraged ambulation and proper hydration. Patient educated on post-operative restrictions and post-operative care. Assessment and plan: Continue with postoperative care as above Discharge plan: ERICA Brooks on 03/12
[2018-03-10] MEDS: rOPINIRole 0.25 MG TABLET PO SCH (22:22)
[2018-03-11] MEDS: traMADol 50 MG TABLET PO PRN (03:45)
[2018-03-11 05:04] LABS: Hematocrit 23.4 % (35.3-44.9); Hemoglobin 7.6 g/dL (11.5-15.4)
[2018-03-11] MEDS: *HR* OxyCODONE Immed Rel 5 MG TABLET PO PRN ×3 (05:41→23:14)
[2018-03-11] MEDS: Levothyroxine 25 MCG TABLET PO SCH (05:41)
[2018-03-11] MEDS ORDERED: Furosemide 20 MG/2 ML VIAL IVP ONE (07:37)
[2018-03-11] MEDS: *HR* Enoxaparin 30 MG/0.3 ML SYRINGE SQ SCH ×2 (07:51→20:07)
--- NOTE | 2018-03-11 08:35 | Orthopedics Progress Note ---
Date of Encounter: 03/11/18 Time of Encounter: 08:35 - Assessment and Plan (1) Arthritis of knee, right Current Visit: No Status: Chronic (2) Status post total knee replacement, right Current Visit: No Status: Acute (3) DMII (diabetes mellitus, type 2) Current Visit: No Status: Chronic Qualifiers: Diabetes mellitus termite exterminator insulin use: unspecified termite exterminator insulin use status Diabetes mellitus complication status: with unspecified complications Qualified Code(s): E11.8 - Type 2 diabetes mellitus with unspecified complications (4) History of CHF (congestive heart failure) Current Visit: No Status: Chronic (5) History of [place] (myocardial infarction) Current Visit: No Status: Chronic (6) Hyperlipidemia Current Visit: No Status: Chronic Qualifiers: Hyperlipidemia type: mixed hyperlipidemia Qualified Code(s): E78.2 - Mixed hyperlipidemia (7) Hypertension Current Visit: No Status: Chronic Qualifiers: Hypertension type: essential hypertension Qualified Code(s): I10 - Essential (primary) hypertension (8) NICM (nonischemic cardiomyopathy) Current Visit: No Status: Chronic (9) Neuropathy Current Visit: No Status: Chronic (10) Acute blood loss anemia Current Visit: Yes Status: Acute (11) Congestive heart failure (CHF) Current Visit: Yes Status: Acute Qualifiers: Heart failure type: diastolic Heart failure chronicity: chronic Qualified Code(s): I50.32 - Chronic diastolic (congestive) heart failure Subjective Interval history: Patient was seen this morning doing well without complaints. Afebrile vital signs stable. Operative extremity: Neurovascularly intact Dressing clean dry and intact Calves nontender Assessment and plan: Continue with postoperative care Hemoglobin 7.2 transfuse 2 units discharged today Objective Vital signs: Vital Signs Temp Pulse Resp BP Pulse Ox 03/11/18 07:00 98 F 67 16 109/63 93 03/11/18 04:17 98.1 F 71 16 109/70 91 03/10/18 23:46 98.1 F 76 16 108/70 92 03/10/18 22:26 84 118/76 03/10/18 20:59 98.1 F 93 17 109/69 92 03/10/18 16:56 98.3 F 73 16 102/65 94 03/10/18 15:15 98.5 F 88 16 117/62 93 03/10/18 10:00 98.4 F 93 16 123/74 95 Intake and Output 03/10/18 03/11/18 03/11/18 23:59 07:59 15:59 Intake Total 100 / 100 Output Total 325 / 325 200 / 200 Balance -325 / -325 -100 / -100 Intake: Oral 100 / 100 Output: Urine 325 / 325 200 / 200 Other: # Voids 1 Weight 73.3 kg Blood Glucose* 98 98 Patient Weight 03/11/18 23:59 Weight 73.3 kg - Labs CBC & BMP: 03/11/18 04:22 03/10/18 00:44 Labs: Abnormal lab results Hgb 7.6 g/dL (11.5-15.4) L 03/11/18 04:22 Hct 23.4 % (35.3-44.9) L 03/11/18 04:22 Sodium 132 mEq/L (136-145) L 03/10/18 00:44 Glucose 125 mg/dL (70-105) H 03/10/18 00:44 Calculated Osmolality 275 (280-300) L 03/10/18 00:44 Calcium 8.1 mg/dL (8.6-10.3) L 03/10/18 00:44 - VTE Documentation of Mechanical Device: Venous foot pump, device Consult Discharge Plan - Plan Referrals: Lesly Hopkins MD [Primary Care Provider] -
[2018-03-11] MEDS: Aspirin 325 MG TABLET PO SCH (09:45)
[2018-03-11] MEDS: Metoprolol XL (24 HR) Succ 25 MG TAB.ER.24H PO SCH (09:46)
[2018-03-11] MEDS: Gabapentin 400 MG CAPSULE PO SCH ×2 (09:48→20:03)
[2018-03-11] MEDS: amLODIPine 5 MG TABLET PO SCH (09:49)
[2018-03-11] MEDS: *HR* Metformin 500 MG TABLET PO SCH ×2 (09:51→18:23)
[2018-03-11] MEDS: Insulin LISPRO 300 UNITS/3 ML VIAL SQ SCH ×3 (09:52→19:47)
[2018-03-11] MEDS ORDERED: 0.9 % Sodium Chloride 500 ML ONE (11:23)
[2018-03-11] MEDS: rOPINIRole 0.25 MG TABLET PO SCH (20:03)
[2018-03-12] MEDS: Insulin LISPRO 300 UNITS/3 ML VIAL SQ SCH ×3 (00:26→12:15)
[2018-03-12 05:38] LABS: Hematocrit 29.5 % (35.3-44.9)
[2018-03-12 05:40] LABS: Hemoglobin 9.8 g/dL (11.5-15.4)
[2018-03-12] MEDS: *HR* Enoxaparin 30 MG/0.3 ML SYRINGE SQ SCH (06:00)
[2018-03-12] MEDS: Levothyroxine 25 MCG TABLET PO SCH (06:01)
--- NOTE | 2018-03-12 06:24 | Orthopedics Progress Note ---
Date of Encounter: 03/12/18 Time of Encounter: 06:23 - Assessment and Plan (1) Arthritis of knee, right Current Visit: No Status: Chronic (2) Status post total knee replacement, right Current Visit: No Status: Acute (3) DMII (diabetes mellitus, type 2) Current Visit: No Status: Chronic Qualifiers: Diabetes mellitus filling hauler insulin use: unspecified filling hauler insulin use status Diabetes mellitus complication status: with unspecified complications Qualified Code(s): E11.8 - Type 2 diabetes mellitus with unspecified complications (4) History of CHF (congestive heart failure) Current Visit: No Status: Chronic (5) History of [place] (myocardial infarction) Current Visit: No Status: Chronic (6) Hyperlipidemia Current Visit: No Status: Chronic Qualifiers: Hyperlipidemia type: mixed hyperlipidemia Qualified Code(s): E78.2 - Mixed hyperlipidemia (7) Hypertension Current Visit: No Status: Chronic Qualifiers: Hypertension type: essential hypertension Qualified Code(s): I10 - Essential (primary) hypertension (8) NICM (nonischemic cardiomyopathy) Current Visit: No Status: Chronic (9) Neuropathy Current Visit: No Status: Chronic (10) Acute blood loss anemia Current Visit: Yes Status: Acute (11) Congestive heart failure (CHF) Current Visit: Yes Status: Acute Qualifiers: Heart failure type: diastolic Heart failure chronicity: chronic Qualified Code(s): I50.32 - Chronic diastolic (congestive) heart failure Subjective Interval history: Patient was seen this morning doing well without complaints. Afebrile vital signs stable. Operative extremity: Neurovascularly intact Dressing clean dry and intact Calves nontender Assessment and plan: Continue with postoperative care Hemoglobin 9.5, discharged today Objective Vital signs: Vital Signs Temp Pulse Resp BP Pulse Ox 03/12/18 04:05 98.9 F 76 16 128/75 94 03/11/18 23:00 99.4 F 76 16 110/67 93 03/11/18 18:39 99.6 F 68 16 110/70 95 03/11/18 18:10 99.7 F H 71 14 112/69 94 03/11/18 15:52 99.0 F 67 16 100/64 99 03/11/18 15:04 99.0 F 67 18 97/61 96 03/11/18 15:03 98.0 F 67 18 103/48 96 03/11/18 14:06 18 102/66 98 03/11/18 12:53 98.8 F 73 18 97/61 92 03/11/18 12:49 95 03/11/18 12:38 98.8 F 68 16 103/66 75 03/11/18 07:00 98 F 67 16 109/63 93 Intake and Output 03/11/18 03/11/18 03/12/18 15:59 23:59 07:59 Intake Total 352 / 352 550 / 550 Output Total 350 / 350 300 / 300 Balance 250 / 250 Intake: Oral 200 / 200 Blood Product 352 / 352 350 / 350 Rbcs Leuko Poor As-1 Unit 351 / 351 [id number] Rbcs Leuko Poor As-1 Unit 350 / 350 [id number] Output: Urine 350 / 350 300 / 300 Other: Meal Breakfast Percent of Meal Consumed 100% Blood Glucose* 116 100 - Labs CBC & BMP: 03/12/18 05:15 03/10/18 00:44 Labs: Abnormal lab results Hgb 9.8 g/dL (11.5-15.4) L D 03/12/18 05:15 Hct 29.5 % (35.3-44.9) L 03/12/18 05:15 Sodium 132 mEq/L (136-145) L 03/10/18 00:44 Glucose 125 mg/dL (70-105) H 03/10/18 00:44 POC Glucose 100 mg/dL (70-99) H 03/11/18 19:03 Calculated Osmolality 275 (280-300) L 03/10/18 00:44 Calcium 8.1 mg/dL (8.6-10.3) L 03/10/18 00:44 - VTE Documentation of Mechanical Device: Venous foot pump, device Consult Discharge Plan - Plan Referrals: Lesly Hopkins MD [Primary Care Provider] -
--- NOTE | 2018-03-12 08:05 | Event Note ---
Date of Encounter: 03/11/18 Time of Encounter: 12:00 LATE ENTRY PCR - POD#3 s/p Right Total knee replacement 03/08/18 Patient seen at bedside, without complaints. A&O x 3 Afebrile, vital signs stable. Labs reviewed. H/H - 7.6/23.4 - receiving 2 units RBC transfusion today Pain control: adequate. improved with lidoderm patch Doppler performed shows no evidence of DVT although it was an incomplete exam secondary to patient's low pain tolerance. She admits to not walking with therapy only [place] [facility] [place] no further. I discussed with her again the importance of participating in therapy and walking further and she expressed understanding. All questions and concerns addressed. Educated on use of incentive spirometer. Encouraged ambulation and proper hydration. Patient educated on post-operative restrictions and post-operative care. Assessment and plan: Continue with postoperative care as above Discharge plan: ERICA Brooks on 03/12
[2018-03-12] MEDS: amLODIPine 5 MG TABLET PO SCH (09:12)
[2018-03-12] MEDS: Aspirin 325 MG TABLET PO SCH (09:12)
[2018-03-12] MEDS: *HR* OxyCODONE Immed Rel 5 MG TABLET PO PRN ×2 (09:12→15:23)
[2018-03-12] MEDS: *HR* Metformin 500 MG TABLET PO SCH (09:13)
[2018-03-12] MEDS: Gabapentin 400 MG CAPSULE PO SCH (09:14)
[2018-03-12] MEDS: Metoprolol XL (24 HR) Succ 25 MG TAB.ER.24H PO SCH (09:14)
[2018-03-12 15:14] VITALS: BP 124/81
== END 2018-03-12 16:21 | DRG 470 ==
LOC: SAMDAY 09:42 → 3NENU 14:03
PROVIDERS: ADMIT Orthopaedic Surgery; ATTEND Orthopaedic Surgery

== ENCOUNTER 2021-11-19 12:09 | Observation (INO) ==
[2021-11-19] MEDS ORDERED: *HR* Labetalol 20 MG/4 ML SYRINGE IVP ONE ×2 (12:30→15:17)
[2021-11-19 13:34] LABS: Basophils # 0.1 K/mcL (0.0-0.2); Basophils % 0.7 %; Eosinophils # 0.1 K/mcL (0.0-0.6); Eosinophils % 1.1 %; Hemoglobin 12.2 g/dL (11.5-15.4); Immature Granulocytes % 0.2 % (0-4); Lymphocytes # 2.6 K/mcL (0.6-4.6); Mean Corpuscular HGB Conc 32.1 g/dL (31.6-35.5); Mean Corpuscular Hemoglobin 28.8 pg (28.0-33.3); Mean Corpuscular Volume 89.6 fL (83.0-100.0); Mean Platelet Volume 9.8 fL (9.4-12.4); Monocytes # 0.7 K/mcL (0.0-1.3); Monocytes % 8.2 %; Neutrophils # 4.6 K/mcL (1.6-8.9); Platelet Count 293 K/mcL (140-400); Red Blood Count 4.24 M/mcL (3.82-4.97); Red Cell Distribution Width 14.2 % (11.5-14.5); Segmented Neutrophils % 57.8 %
[2021-11-19 13:56] LABS: Alanine Aminotransferase 20 Units/L (7-52); Albumin 4.6 g/dL (3.5-5.7); Albumin/Globulin Ratio 1.7 (1.1-2.2); Alkaline Phosphatase 95 Units/L (34-104); Aspartate Amino Transferase 22 Units/L (13-39); BUN/Creatinine Ratio 21 (6-26); Bilirubin,Total 0.3 mg/dL (0.3-1.0); Blood Urea Nitrogen 16 mg/dL (8-23); Calcium 9.3 mg/dL (8.6-10.3); Carbon Dioxide 29 mEq/L (23-29); Chloride 100 mEq/L (98-107); Globulin 2.7 g/dL (2.4-3.5); Glucose 85 mg/dL (70-105); Osmolality,Calculated 282 (280-300); Potassium 4.4 mEq/L (3.5-5.1); Sodium 136 mEq/L (136-145); Total Protein 7.3 g/dL (6.4-8.9); Troponin I 0.03 ng/mL (< 0.04); eGFR For African Americans > 60 (> 60); eGFR For Non-African Americans > 60 (> 60)
[2021-11-19] MEDS ORDERED: Ketorolac 30 MG/ML VIAL IVP ONE (16:05)
[2021-11-19] MEDS ORDERED: Ondansetron 4 MG/2 ML VIAL IVP PRN (17:52)
[2021-11-19] MEDS ORDERED: Naloxone 0.4 MG/ML INJ IVP PRN (17:52)
[2021-11-19] MEDS ORDERED: Isovue-370 500 ML BOTTLE IVP ONE (18:12)
[2021-11-19] MEDS: niCARdipine 20 MG/200 ML MLS IVC SCH ×2 (18:16→23:49)
[2021-11-19] MEDS: *HR* OxyCODONE Immed Rel 5 MG TABLET PO PRN (20:45)
[2021-11-19] MEDS: Gabapentin 400 MG CAPSULE PO SCH (20:45)
[2021-11-19] MEDS: carBAMazepine 200 MG TABLET PO SCH (21:14)
[2021-11-19] MEDS: SUMAtriptan succinate 50 MG TABLET PO PRN (23:50)
[2021-11-20] MEDS: niCARdipine 20 MG/200 ML MLS IVC SCH ×3 (04:01→09:00)
[2021-11-20] MEDS: *HR* OxyCODONE Immed Rel 5 MG TABLET PO PRN ×3 (04:11→21:03)
[2021-11-20 06:01] LABS: BUN/Creatinine Ratio 22 (6-26); Blood Urea Nitrogen 17 mg/dL (8-23); Calcium 9.1 mg/dL (8.6-10.3); Carbon Dioxide 24 mEq/L (23-29); Chloride 103 mEq/L (98-107); Glucose 135 mg/dL (70-105); Magnesium 1.9 mg/dL (1.6-2.6); Osmolality,Calculated 288 (280-300); Phosphorous 3.9 mg/dL (2.7-4.5); Potassium 3.7 mEq/L (3.5-5.1); Sodium 137 mEq/L (136-145); eGFR For African Americans > 60 (> 60); eGFR For Non-African Americans > 60 (> 60)
[2021-11-20] MEDS: carvediloL 6.25 MG TABLET PO SCH ×2 (07:34→17:29)
[2021-11-20] MEDS: Gabapentin 400 MG CAPSULE PO SCH ×2 (07:34→21:03)
[2021-11-20] MEDS ORDERED: carvediloL 6.25 MG TABLET PO SCH (08:00)
[2021-11-20] MEDS: Magnesium Oxide 400 MG TABLET PO SCH (08:16)
[2021-11-20] MEDS: Cholecalciferol (D-3) 1,000 UNIT (25MCG) TABLET PO SCH (08:16)
[2021-11-20] MEDS: carBAMazepine 200 MG TABLET PO SCH (08:17)
[2021-11-20] MEDS ORDERED: lisinopriL 20 MG TABLET PO SCH (09:00)
[2021-11-20] MEDS: SUMAtriptan succinate 50 MG TABLET PO PRN ×2 (14:59→21:02)
[2021-11-20] MEDS ORDERED: amLODIPine 5 MG TABLET PO ONE (16:35)
[2021-11-20] MEDS ORDERED: Nitroglycerin 0.4 MG TAB.SUBL SL PRN (16:37)
[2021-11-20] MEDS ORDERED: *HR* Labetalol 20 MG/4 ML SYRINGE IVP ONE (18:22)
[2021-11-20] MEDS ORDERED: Melatonin 3 MG TABLET PO SCH (21:00)
[2021-11-20] MEDS ORDERED: Primidone 50 MG TABLET PO SCH (21:00)
[2021-11-20] MEDS ORDERED: rOPINIRole 0.25 MG TABLET PO SCH (21:00)
[2021-11-20] MEDS: OXcarbazepine 150 MG TABLET PO SCH (21:03)
[2021-11-21 07:33] VITALS: BP 119/72; PULSE 72; TEMP 98.2; O2SAT 97
[2021-11-21] MEDS: Cholecalciferol (D-3) 1,000 UNIT (25MCG) TABLET PO SCH (08:54)
[2021-11-21] MEDS: Gabapentin 400 MG CAPSULE PO SCH (08:54)
[2021-11-21] MEDS: carvediloL 6.25 MG TABLET PO SCH (08:54)
[2021-11-21] MEDS: Magnesium Oxide 400 MG TABLET PO SCH (08:55)
[2021-11-21] MEDS ORDERED: Loratadine 10 MG TABLET PO SCH (09:00)
[2021-11-21] MEDS ORDERED: amLODIPine 5 MG TABLET PO SCH (09:00)
[2021-11-21] MEDS ORDERED: lisinopriL 20 MG TABLET PO SCH (09:00)
[2021-11-21] MEDS ORDERED: Tolterodine LA (24 HR) 4 MG CAP.ER.24H PO SCH (09:00)
[2021-11-21] MEDS ORDERED: Aspirin 325 MG TABLET PO SCH (09:00)
[2021-11-21] MEDS: *HR* OxyCODONE Immed Rel 5 MG TABLET PO PRN (09:03)
[2021-11-21] MEDS: OXcarbazepine 150 MG TABLET PO SCH (09:07)
== END 2021-11-21 16:11 | disposition home or self-care (01) ==
LOC: EMEROOARM 12:09 → 2NNU 12:09 → SUATTDRO 17:59 → 2NNU 18:38
PROVIDERS: ADMIT Internal Medicine; ATTEND Internal Medicine